=== PATIENT | female | born 1985 ===

== ENCOUNTER 2024-04-05 05:28 | Inpatient (IN) ==
--- NOTE | 2024-03-29 08:44 | Anesthesiology Consultation ---
Date of Service March 29, 2024 Assessment & Plan (1) Encounter for pre-operative examination: Infectious disease screening: Per assessment on 03/29/24- No known recent infectious disease contacts or current infectious disease symptoms. Chart Review Chart Review: maintenance plumber initiated History Surgery Operation Date: 04/05/24 07:30 Proposed Procedures p Section (Delivery of Baby Through Abdominal Incision) - Cadence Lau MD, FACOG Height/Weight Height: 5 ft 2 in Weight: 73.028 kg Allergies Allergy/AdvReac Type Severity Reaction Status Date / Time No Known Allergies Allergy Verified 03/29/24 08:18 Medications Home Medications Medication Instructions Recorded Confirmed Last Taken dnyshlxv-scw-Zo-FA 1 tab PO QAM 09/01/23 03/29/24 Unknown [ Plus] docusate sodium 100 mg capsule 100 mg PO QAM 03/29/24 03/29/24 Unknown (Colace) Past Medical History Medical History (Updated 03/29/24 @ 08:43 by Samara Fried) Generalized anxiety disorder dx 2021 Past Family History Family History Mother Skin cancer Denies family history of Ovarian cancer Breast cancer Colorectal cancer Past Surgical History Surgical History (Updated 03/29/24 @ 08:43 by Samara Fried) S/P section [place] teeth extracted Social History Smoking Status: Never smoker Do You Dip or Chew Tobacco: No Hx Alcohol Use: Yes (not while ) Alcohol type: wine alcohol intake frequency: other Alcohol Intake Frequency Comment: 1-2 glasses per month Hx Substance Use: No substance use type: does not use
--- NOTE | 2024-04-01 08:03 | History & Physical Report ---
Date of Service April 01, 2024 Assessment & Plan (1) Previous delivery affecting , antepartum: Plan Patient presents for repeat c/s. Was offered FLOR at tertiary center and declines. The risks of surgery were discussed with the patient including the risks of anesthesia, bleeding requiring transfusion, infection, poor wound healing, urinary retention, damage to surrounding structures including bowels, bladder, vessels, nerves and ureters that may require further surgery, hospitalization or intervention. The other risks of any surgery were discussed including heart attack, blood clots, stroke or . Discussed risk of injury to the baby. Consent reviewed and signed. Questions answered. Declines sterilization. History of Present Illness Chief Complaint: presents for repeat c/s Primary Care Provider: NO PCP Patient is a 39yowf with hx of a c/s in the past with bilateral cervical extensions. Presents for repeat c/s at 39 0/7 weeks. NO complications this . and Delivery Plans AMA Weekly NSTs @ 36 weeks Previous --primary ltcs with bilateral cervical extensions and repaired in one layer. need vaginal hand to push fetus up Recommend @ tertiary [place] or c/s here at [facility] Patient prefers repeat C/S SCHEDULED FOR 04/05/[address] CHRISTOPHER OB Labs: Blood Type O Positive 09/04/23 Antibody Screen NEGATIVE 09/04/23 Hgb 11.8 g/dl (12.0-16.0) L 01/23/24 Hct 34.6 % (37.0-47.0) L 01/23/24 MCV 87.2 fL (80.0-100.0) 09/04/23 Plt Count 302 K/uL (130-400) 09/04/23 Rubella IgG Antibody Immune (Immune) 09/04/23 RPR Nonreactive (Nonreactive) 09/04/23 Treponema pallidum Ab Negative (Negative) 01/23/24 Hep Bs Antigen NON-REACTIVE (NON-REACTIVE) 09/04/23 Hepatitis C Ab (EIA) NON-REACTIVE (NON-REACTIVE) 09/04/23 HIV (1&2) Ag & Ab Conf NON-REACTIVE (NON-REACTIVE) 09/04/23 Glucose 1 Hr 50 gm 148 mg/dl (70-130) H 10/29/23 OB Optional Labs: Chlamydia trachomatis RNA Not Detected (NotDetected) 09/04/23 Neisseria gonorrhoeae RNA Not Detected (NotDetected) 09/04/23 Labs Reviewed: Declines genetics--mln declined afp/qs--akh passed 16 week 2 hr gtt.--akh passed 28 week 2 hr gtt--akh gbs neg Allergies Allergy/AdvReac Type Severity Reaction Status Date / Time No Known Allergies Allergy Verified 04/01/24 08:35 Home Medications Medication Instructions Recorded Confirmed Type ndwhkwsu-pxx-Ug-FA 1 tab PO QAM 09/01/23 04/01/24 History [ Plus] docusate sodium 100 mg capsule 100 mg PO QAM 03/29/24 04/01/24 History (Colace) Patient History Medical History Generalized anxiety disorder dx 2021 Surgical History [place] teeth extracted S/P section Family History Mother Skin cancer Denies family history of Ovarian cancer Breast cancer Colorectal cancer Social History Smoking Status: Never smoker Second Hand Exposure: No; Do You Dip or Chew Tobacco: No; Hx Alcohol Use: Yes (not while ) Alcohol type: wine Hx Substance Use: No Preferred Language: Slovenian Communication Ability: Effective Licensed Psychiatric Technician Required: No Beliefs That Will Affect Care: None marital status: marital status details: James Bennett (36) [phone] Current Living Situation: Spouse and Family Current Living Situation Comment: Lives with and daughter current occupational status: employed current occupation: [employer] Feels Safe at Home: Yes Assistive Devices: Contacts and Glasses Physical Exam Constitutional: WD/WN, vitals as above Psychiatric: A+Ox3, euthymic affect Coding Level of Care Code None Diagnoses Previous delivery affecting , antepartum O34.219
[~2024-04-05 05:28] MED LIST: diphenhydrAMINE 50 MG/ML VIAL IV PRN
[2024-04-05 06:04] LABS: Basophils # (auto) 0.03 K/uL (0.00-0.20); Basophils % (auto) 0.3 %; Eosinophils # (auto) 0.04 K/uL (0.00-0.50); Eosinophils % (auto) 0.4 %; Hematocrit (blood only) 36.2 % (37.0-47.0); Hemoglobin 12.4 g/dl (12.0-16.0); Immature Granulocytes # (auto) 0.05 K/uL (0.01-0.20); Immature Granulocytes % (auto) 0.5 %; Lymphocytes # (auto) 2.35 K/uL (1.20-3.40); Lymphocytes % (auto) 25.7 %; Mean Corpuscular Hgb Conc 34.3 g/dL (32.0-36.0); Mean Corpuscular Volume 87.7 fL (80.0-100.0); Mean Platelet Volume 10.9 fL (9.4-12.4); Monocytes # (auto) 0.73 K/uL (0.11-0.59); Neutrophils # (auto) 5.93 K/uL (1.40-6.50); Neutrophils % (auto) 65.1 %; Platelet Count 206 K/uL (130-400); RDW Coefficient of Variation 13.2 % (11.5-14.5); RDW Standard Deviation 42.5 fL (36.4-46.3); Red Blood Count 4.13 M/uL (4.20-5.40); White Blood Count 9.13 K/ul (4.8-10.8)
[2024-04-05] MEDS: ACETAMINOPHEN 500 MG TAB PO SCH (06:27)
[2024-04-05] MEDS ORDERED: LACTATED RINGER'S 1,000 ML IV SCH ×2 (06:30→08:51)
[2024-04-05] MEDS: LACTATED RINGER'S 1,000 ML IV SCH (07:04)
[2024-04-05] MEDS: CITRIC ACID/SODIUM CITRATE 15 ML UDC PO SCH (07:07)
--- NOTE | 2024-04-05 07:12 | History & Physical Bridge Note ---
Date of Service April 05, 2024 History & Physical Bridge Note I have examined the patient, reviewed the History & Physical and in the interval since the performance of the History & Physical I have noted the following changes of clinical significance: no changes noted
[2024-04-05] MEDS: ceFAZolin 2000MG 2,000 MG/15 ML SYR IV SCH (07:17)
[2024-04-05] MEDS ORDERED: ONDANSETRON INJ 2 MG/ML 2 ML VIAL ONE (07:22)
[2024-04-05] MEDS ORDERED: DEXAMETHASONE SOD INJ 4 MG/ML VIAL ONE (07:22)
[2024-04-05] MEDS ORDERED: OXYTOCIN 10 UNITS/ML VIAL ONE (07:22)
[2024-04-05] MEDS ORDERED: GLYCOPYRROLATE 0.2 MG/ML VIAL ONE (07:22)
[2024-04-05] MEDS ORDERED: fentaNYL citrate PF 100 MCG/2 ML VIAL ONE (07:24)
[2024-04-05] MEDS ORDERED: MoRPHine SULFATE PF 1 MG/ML 10 ML AMP/VIAL ONE (07:24)
[2024-04-05] MEDS ORDERED: PHENYLEPHRINE HCL 25 MG/250 ML NSS IV ONE (07:26)
[2024-04-05] MEDS: CARBOPROST TROMETHAMINE 250 MCG/ML AMPUL IM ONE (08:01)
[2024-04-05] MEDS ORDERED: NALOXONE HCL 0.4 MG/1 ML VIAL/CARP IV PRN (08:05)
[2024-04-05] MEDS ORDERED: ONDANSETRON INJ 2 MG/ML 2 ML VIAL IV PRN (08:05)
[2024-04-05] MEDS ORDERED: HYDROmorphone INJ 0.5 MG/0.5 ML SYR IV PRN (08:05)
[2024-04-05] MEDS ORDERED: NALBUPHINE HCL INJ 10 MG/ML AMP IV PRN (08:05)
[2024-04-05] MEDS ORDERED: METOCLOPRAMIDE HCL 20 MG in SODIUM CHLORIDE 0.9% 50 ML IV PRN (08:05)
[2024-04-05] MEDS ORDERED: MEPERIDINE HCL 25 MG/ML CARP/VIAL IV PRN (08:05)
[2024-04-05] MEDS ORDERED: DROPERIDOL 5 MG/2 ML VIAL IV PRN (08:05)
[2024-04-05] MEDS ORDERED: MoRPHine SULFATE PF 1 MG/ML 10 ML AMP/VIAL INT SPINAL ONE (08:05)
[2024-04-05] MEDS ORDERED: NALOXONE HCL 0.08 MG in SYRINGE 1.8 ML IV PRN (08:05)
[2024-04-05] MEDS ORDERED: PROMETHAZINE 6.25 MG/50.25 ML BAG IV PRN (08:05)
[2024-04-05] MEDS ORDERED: NALOXONE HCL 1 MG in SODIUM CHLORIDE 0.9% 1,000 ML IV PRN (08:05)
[2024-04-05] MEDS ORDERED: ePHEDrine sulfate 50 MG/ML AMP IV PRN (08:05)
[2024-04-05] MEDS ORDERED: diphenhydrAMINE 50 MG/ML VIAL IV PRN (08:05)
[2024-04-05] MEDS ORDERED: DC INTRASPINAL MORPHINE SCH (08:15)
[2024-04-05] MEDS ORDERED: NO NARCOTICS OR SEDATIVES SCH (08:15)
[2024-04-05] MEDS ORDERED: diphenhydrAMINE 50 MG/ML VIAL ONE (08:17)
--- NOTE | 2024-04-05 08:45 | Operative Report ---
PG Post Operative Report Pre & Post Diagnosis Operation Date: 04/05/24 07:30 Pre-Op Diagnosis: 1.Intrauterine pregnany at 39 weeks 2.Hx of c section desires repeat 3.Breech Post-Op Diagnosis: Same as preoperative I identified the patient and participated in the time-out.: Yes Procedure Operation Date: 04/05/24 07:30 Actual Procedures p Primary low transverse Section in LD delivery of LFC @ 0758 on 04/05/24(Bilateral) - Cadence Lau MD, FACOG Surgeon Cadence Lau MD, FACOG Leave Specialist Zafar Jesus, pgy1, WMarilyn Moody, MS2 Estimated Blood Loss 811 Findings Consistent with Post-Op Diagnosis normal appearing uterus, tubes, ovaries. viable female fetus, apgars 8/9, breech Fluids 1700cc 200cc clear urine in the Knight Specimens none Drains knight Anesthesia Type Spinal Complications none Disposition Accompanied Patient To Recovery: Yes Disposition: L&D Indications 39yowf with iup at 39 weeks who desires repeat c/s Description of Procedure The patient was taken to the operating room where she was identified verbally and by bracelet. She was seated on the operating table where a spinal anesthetic was placed by anesthesia. She was then placed in the supine position with a leftward tilt. A Knight catheter was placed sterilely. the patient was prepped and draped in a normal standard fashion. the anesthetic was tested and found to be adequate. A time-out was held, identifying correct patient, procedure, positioning and preoperative antibiotics. There were no concerns. A Pfannenstiel skin incision was made with a knife and taken down to the underlying layer of fascia with the knife and Bovie electrocautery. Bleeding was attended to with the Bovie. The fascia was incised in the midline with the knife and taken out laterally with scissors. The superior edge of the fascial incision was grasped, elevated and the underlying layer of rectus muscle was taken off bluntly and with scissors. In a similar fashion, the inferior edge of the fascial incision was grasped, elevated and the underlying layer of rectus muscle was taken off bluntly and with scissors. The muscles were bluntly in the midline. The peritoneum was entered bluntly. The incision was then stretched. The bladder blade was placed. The vesicouterine peritoneum was identified, entered with scissors and taken out laterally with scissors. The bladder flap was created digitally A hysterotomy incision was scored with a knife and the incision was stretched superiorly and inferiorly with the pulverizer mill operator's fingers. The operators hand was placed into the incision and the buttocks were delivered atraumatically. The body was delivered with fundal pressure. the arms were reduced and the head was delivered with fundal pressure. No nuchal cord. The nose and mouth were bulb suctioned. The cord was clamped and cut and the infant was then handed off to the awaiting poultry hatchery man for drying and attention. Cord blood and segment were obtained. The placenta was Manually extracted. The uterus was exteriorized and cleared of all clot and debris with moistened laparotomy sponges. The hysterotomy incision was repaired in two layers, the first in a running locked layer, the second in an imbricating layer. Hemostasis was noted to be good. Posterior cul-de-sac was irrigated and cleared of all clot and debris. The hysterotomy incision was again inspected and one suture placed and found to be hemostatic. the uterus was reinteriorized. Hysterotomy incision was again inspected and found to be hemostatic. Rectus muscles were reapproximated with several interrupted stitches of 0 Vicryl. The fascia was then reapproximated with 0 Vicryl starting at the edges and meeting in the midline. The subcuticular tissues were copiously irrigated and bleeding was attended to with cautery. The skin was then closed with 4-0 Vicryl in a subcuticular fashion. All sponge, lap and needle counts were correct x 2. the patient tolerated the procedure well and was taken to the recovery room in stable condition. I attest to the content of the Intraoperative Record and any orders documented therein. Any exceptions are noted below. OB Procedure Charges 80516
--- NOTE | 2024-04-05 08:49 | Anesthesiology Progress Note ---
Date of Service April 05, 2024 Anesthesia Post Procedure Vital Signs Vital Signs: Temp Pulse Resp BP Pulse Ox 04/05/24 08:43 103 H 99 04/05/24 08:42 90 111/59 L 04/05/24 08:39 103 H 94 04/05/24 08:38 99 H 96 04/05/24 08:33 107 H 100 04/05/24 08:32 111 H 114/61 04/05/24 07:27 95 H 99 04/05/24 07:22 91 H 100 04/05/24 07:17 91 H 99 04/05/24 07:12 92 H 98 04/05/24 07:05 36.6 C 93 H 16 125/83 04/05/24 06:01 90 104/71 04/05/24 05:55 36.6 C 16 Transfer of Care Handoff Completed per policy Notes Mental Status: alert / awake / arousable Patient Amnestic to Procedure: Yes Nausea / Vomiting: adequately controlled Pain: adequately controlled Airway Patency, RR, SpO2: stable & adequate BP & HR: stable & adequate Hydration State: stable & adequate Neuraxial Anesthesia: was administered and sensory block is resolving Anesthetic Complications: no major complications apparent and Pt Satisfied with anesthetic care
[2024-04-05] MEDS ORDERED: CALCIUM CARBONATE 500 MG CHEWABLE TAB PO PRN (08:51)
[2024-04-05] MEDS ORDERED: BENZOCAINE 20% SPRY 85 APPLN/85 GM CAN EXT PRN (08:51)
[2024-04-05] MEDS ORDERED: HYDROCORTISONE ACETATE 25 MG SUPP PR PRN (08:51)
[2024-04-05] MEDS ORDERED: DIPHTHER/TETAN/PERTUS Vaccine (Tdap, Adol/Adult) 0.5mL IM ONE (08:51)
[2024-04-05] MEDS ORDERED: SENNA 8.6 MG TAB PO PRN (08:51)
[2024-04-05] MEDS ORDERED: MAGNESIUM HYDROXIDE SUSP 30 ML UDC PO PRN (08:51)
[2024-04-05] MEDS: KETOROLAC 30 MG/ML VIAL IV SCH (09:14)
[2024-04-05] MEDS: OXYTOCIN 20 UNITS/LR 1,002 ML IV SCH (10:04)
[2024-04-05] MEDS: SIMETHICONE 80 MG CHEW PO SCH (14:43)
[2024-04-05] MEDS: ACETAMINOPHEN 325 MG TAB PO SCH (14:43)
[2024-04-05] MEDS: DOCUSATE SODIUM 100 MG CAP PO SCH (21:07)
[2024-04-06] MEDS ORDERED: HYDROmorphone INJ 0.5 MG/0.5 ML SYR IV PRN (02:05)
[2024-04-06] MEDS ORDERED: diphenhydrAMINE Capsule 25 MG CAP PO PRN (02:05)
[2024-04-06] MEDS ORDERED: PROMETHAZINE 12.5 MG/50.5 ML BAG IV PRN (02:05)
[2024-04-06] MEDS ORDERED: KETOROLAC 30 MG/ML VIAL ONE (05:07)
--- NOTE | 2024-04-06 05:44 | Obstetrical Progress Note ---
Date of Service April 06, 2024 Assessment & Plan (1) Encounter for care and examination after delivery: (2) care following delivery: Plan Encourage ambulation out of the room Continue Tylenol 650mg PO, ibuprofen 600mg PO, ketorolac 30mg IV,or h ydromorphone 0.25 IV as needed Assistance for breast feeding as needed Re-assess incision for any wilton-incision blistering due to painful bandage removal. Plan for discharge 04/07/24 Admission and Anticipated Discharge Date Admission Date: April 05, 2024 Supervising Physician Co-Signing Physician Notes Resident Physician Supervision Note: I interviewed and examined the patient. Discussed with Dr. Jesus and agree with findings and plan as documented in the note. Any exceptions or clarifications are listed here: [ ] Documented By: Johanne Vincent MD, FACOG Subjective Pt is 39 yo post-op day 1 s/p CS at 39w4d Ambulation:In room Voiding:voiding normally Passing gas: yes BM:no Diet tolerance:regular diet Lochia:bloody, no clots Feeding type: breast Current pain level: 4 /10 Resting comfortably this morning in NAD. Denies MARTINEZ, CP, SOB, N/V/D, LE pain/swelling. Review of Systems Review of Systems: As per HPI Physical Exam Constitutional: WD/WN, vitals as above Respiratory: normal respiratory effort, lungs clear to auscultation Gastrointestinal (Abdomen): normal bowel sounds, soft, nontender, no hepatosplenomegaly Uterine fundus firm and 1 cm above level of umbilicus Incision dressing removed, incision is clean dry and well approximated. Covered by steri strips. Removal of tape was painful. Skin under tape appears slightly pink, but no skin breakdown or blisters noted Neurologic: PERRL, EOMI, accommodation nl, no face palsy, no dysarthria Moving all 4 extremities on command Psychiatric: A+Ox3, euthymic affect Results & Data Vital Signs (Past 12 Hours) Vital Signs Temp Pulse Resp BP Pulse Ox O2 Del Method 04/06/24 02:07 16 94 04/06/24 01:15 17 96 04/06/24 00:05 15 96 04/05/24 23:22 16 95 04/05/24 23:00 36.5 C 90 105/72 95 Room Air 11/25/24 22:11 16 94 04/05/24 21:24 16 95 04/05/24 20:50 15 96 04/05/24 20:50 36.7 C 80 15 117/79 96 Room Air 04/05/24 19:15 16 95 04/05/24 18:00 18 98 Resident Activity Tracking Resident Involvement: Resident Care Provided Care Provided: Adult Hospital Medicine
[2024-04-06 06:11] LABS: Basophils # (auto) 0.03 K/uL (0.00-0.20); Basophils % (auto) 0.2 %; Eosinophils # (auto) 0.05 K/uL (0.00-0.50); Eosinophils % (auto) 0.4 %; Hematocrit (blood only) 28.9 % (37.0-47.0); Hemoglobin 9.8 g/dl (12.0-16.0); Immature Granulocytes # (auto) 0.09 K/uL (0.01-0.20); Immature Granulocytes % (auto) 0.7 %; Lymphocytes # (auto) 2.49 K/uL (1.20-3.40); Lymphocytes % (auto) 18.8 %; Mean Corpuscular Hemoglobin 30.1 pg (25.0-34.0); Mean Corpuscular Hgb Conc 33.9 g/dL (32.0-36.0); Mean Corpuscular Volume 88.7 fL (80.0-100.0); Mean Platelet Volume 10.7 fL (9.4-12.4); Monocytes # (auto) 0.86 K/uL (0.11-0.59); Monocytes % (auto) 6.5 %; Neutrophils # (auto) 9.71 K/uL (1.40-6.50); Neutrophils % (auto) 73.4 %; Platelet Count 169 K/uL (130-400); RDW Coefficient of Variation 13.3 % (11.5-14.5); RDW Standard Deviation 42.9 fL (36.4-46.3); Red Blood Count 3.26 M/uL (4.20-5.40); White Blood Count 13.23 K/ul (4.8-10.8)
[2024-04-06] MEDS ORDERED: KETOROLAC 30 MG/ML VIAL IV PRN (08:33)
[2024-04-06] MEDS: PRENATAL VITAMIN 1 TAB PO SCH (08:41)
[2024-04-06] MEDS: IBUPROFEN 600 MG TAB PO SCH (08:41)
[2024-04-06] MEDS: FERROUS SULFATE 325 MG TAB PO SCH (08:41)
[2024-04-06] MEDS: oxyCODONE HCL IR 5 MG TAB (IMMEDIATE RELEASE) PO PRN (16:46)
[2024-04-06] MEDS: bisacodyL 5 MG TABEC PO SCH (20:39)
[2024-04-07] MEDS: ONDANSETRON INJ 2 MG/ML 2 ML VIAL IV PRN (02:53)
[2024-04-07 05:02] VITALS: RESP 18
--- NOTE | 2024-04-07 05:40 | Obstetrical Progress Note ---
Date of Service April 07, 2024 Assessment & Plan (1) Encounter for care and examination after delivery: (2) care following delivery: Plan Encourage ambulation out of the room Continue Tylenol 650mg PO, ibuprofen 600mg PO, ketorolac 30mg IV,or h ydromorphone 0.25 IV as needed Assistance for breast feeding as needed Re-assess incision for any wilton-incision blistering due to painful bandage removal. Plan for discharge 04/07/24 Admission and Anticipated Discharge Date Admission Date: April 05, 2024 Supervising Physician Co-Signing Physician Notes Resident Physician Supervision Note: I interviewed and examined the patient. Discussed with Dr. Jesus and agree with findings and plan as documented in the note. Any exceptions or clarifications are listed here: POD2 s/p rLTCS. Had some n/v issues yesterday, not sure if she overdid it and then ate too much at lunch. Is better now but still a little nauseous, tolerating po. VSS, exam benign, incision c/d/i. Would like to see how today goes and dc if feels ok Documented By: Danay Gaston MD Subjective Pt is 39 yo post-op day 1 s/p CS at 39w4d. Pt reports nausea over night with increase in loer abdominal pain. No vomiting. Pt is feeling better this mor joann. Ambulation:In and out of room Voiding:voiding normally Passing gas: yes BM:no Diet tolerance:regular diet Lochia:small amount bloody, no clots Feeding type: breast, supplementing with formula Current pain level: 4 /10 Resting comfortably this morning in NAD. Denies MARTINEZ, CP, SOB, N/V/D, LE pain/swelling. Review of Systems Review of Systems: As per HPI Physical Exam Constitutional: WD/WN, vitals as above Respiratory: normal respiratory effort, lungs clear to auscultation Gastrointestinal (Abdomen): normal bowel sounds, soft, nontender, no hepatos plenomegaly Fundus is firm at level of umbilicus Neurologic: PERRL, EOMI, accommodation nl, no face palsy, no dysarthria Psychiatric: A+Ox3, euthymic affect Results & Data Vital Signs (Past 12 Hours) Vital Signs Temp Pulse Resp BP Pulse Ox O2 Del Method 04/07/24 03:00 36.5 C 72 18 123/82 04/06/24 20:30 36.9 C 82 16 124/84 99 Room Air Resident Activity Tracking Resident Involvement: Resident Care Provided Care Provided: Adult Hospital Medicine
[2024-04-07 06:20] LABS: Hematocrit (blood only) 26.4 % (37.0-47.0); Hemoglobin 8.9 g/dl (12.0-16.0)
[2024-04-07] MEDS ORDERED: bisacodyL 10 MG SUPP PR PRN (08:33)
[2024-04-07] MEDS: IBUPROFEN 600 MG TAB PO PRN (08:46)
[2024-04-07 08:53] VITALS: BP 117/75; PULSE 95; TEMP 97.9; O2SAT 97
[2024-04-07] MEDS ORDERED: ACETAMINOPHEN 325 MG TAB PO PRN (14:33)
== END 2024-04-07 14:57 | disposition home or self-care (01) | DRG 788 ==
LOC: 4S1 05:28 → EDSTATUS 07:30 → 4E2 11:44